=== PATIENT | female | born 1955 | race African-American/Black ===

== ENCOUNTER 2018-07-22 19:59 | Emergency (ER) | payer SELFPAY ==
--- NOTE | 2018-07-22 20:54 | ER Document Report ---
ED Medical Screen (RME) - General Chief Complaint: Foot Pain Stated Complaint: FEET PAIN Time Seen by Provider: 07/22/18 20:49 TRAVEL OUTSIDE OF THE [place] IN LAST 30 DAYS: No - HPI Notes: 07/22/18 20:52 Patient is a 63-year-old female who presents emergency department complaining of left pain to her first second and third toes that began about 6 days ago. Patient states that she thought she had an ingrown toenail in her great toe which is where the pain starts that she went had a pedicure done in outpatient has some redness and pain to the skin around the toenails of the first second and third digit. She has not noticed any abscess or purulent discharge. No injury. Denies SILVA, fever, neck pain, URI, CP, SOB, Abd pain. I have treated and performed a rapid initial assessment of this patient. A comprehensive ED assessment and evaluation of the patient, analysis of test results and completion of medical decision making process will be conducted by additional ED providers. PHYSICAL EXAMINATION: GENERAL: Well-appearing, well-nourished and in no acute distress. A&Ox4. Answers questions appropriately. LUNGS: Breath sounds clear to auscultation bilaterally and equal. No wheezes rales or rhonchi. HEART: Regular rate and rhythm without murmurs, rubs, gallops. Left toes: + bent shaped nails with mild erythema and tenderness associated to the nail border of the first 3 toes. No obvious abscess. No streaks or bony tenderness. N/V intact distal. - Related Data Allergies/Adverse Reactions: No Known Allergies Allergy (Unverified 12/30/13 11:04) Past Medical History - Past Medical History Cardiac Medical History: Reports: Hx Hypertension - treated by OTC remedies Renal/ Medical History: Reports: Hx Kidney Stones Past Surgical History: Reports: Hx Orthopedic Surgery - R GREAT TOE - Immunizations Hx Diphtheria, Pertussis, Tetanus Vaccination: No Physical Exam - Vital signs Vitals: Temp Pulse Resp BP Pulse Ox 98.0 F 93 17 168/106 H 99 07/22/18 20:02 07/22/18 20:02 07/22/18 20:02 07/22/18 20:02 07/22/18 20:02 Course - Vital Signs Vital signs: Temp Pulse Resp BP Pulse Ox 98.0 F 93 17 168/106 H 99 07/22/18 20:02 07/22/18 20:02 07/22/18 20:02 07/22/18 20:02 07/22/18 20:02
[2018-07-22] MEDS ORDERED: CEPHALEXIN 500 MG CAPSULE PO ONE (22:46)
--- NOTE | 2018-07-22 23:24 | ER Document Report ---
HPI - HPI Patient complains to provider of: Nail infection Time Seen by Provider: 07/22/18 20:49 Onset: Other - 3 weeks Onset/Duration: Worse Quality of pain: Achy Pain Level: 4 Context: Patient presents complaining of pain and swelling to the left first and second toes. Patient states she has had drainage from the left second toe. Patient reports getting a pedicure 2 weeks ago which helped her toenail discomfort although the pain started to worsen over the past week. Patient denies any fever. Patient denies any history of diabetes. Patient denies any trauma to the toes. Patient states she had similar problem involving the toes of the right foot and had to have her great toe nail removed. Associated Symptoms: Other - Left foot toe pain. denies: Fever Exacerbated by: Movement Relieved by: Denies Similar symptoms previously: Yes Recently seen / treated by doctor: No - ROS ROS below otherwise negative: Yes Systems Reviewed and Negative: Yes All other systems reviewed and negative - CONSTITUTIONAL Constitutional: DENIES: Fever - MUSCULOSKELETAL Musculoskeletal: REPORTS: Extremity pain, Swelling - DERM Skin Color: Normal Notes: Discoloration of the toes, drainage from the left toe Past Medical History - General Information source: Patient - Social History Smoking Status: Current Every Day Smoker Chew tobacco use (# tins/day): Yes Frequency of alcohol use: Social Drug Abuse: None Occupation: [employer] Lives with: Spouse/Significant other Family History: Reviewed & Not Pertinent Patient has suicidal ideation: No Patient has homicidal ideation: No - Past Medical History Cardiac Medical History: Reports: Hx Hypertension - treated by OTC remedies Endocrine Medical History: Denies: Hx Diabetes Mellitus Type 1, Hx Diabetes Mellitus Type 2 Renal/ Medical History: Reports: Hx Kidney Stones. Denies: Hx Peritoneal Dialysis Past Surgical History: Reports: Hx Orthopedic Surgery - R GREAT TOE - Immunizations Hx Diphtheria, Pertussis, Tetanus Vaccination: No Vertical Provider Document - CONSTITUTIONAL Agree With Documented VS: Yes Exam Limitations: No Limitations General Appearance: WD/WN, No Apparent Distress - INFECTION CONTROL TRAVEL OUTSIDE OF THE [place] IN LAST 30 DAYS: No - HEENT HEENT: Atraumatic, Normocephalic - NECK Neck: Normal Inspection - RESPIRATORY Respiratory: Breath Sounds Normal, No Respiratory Distress - CARDIOVASCULAR Cardiovascular: Regular Rate, Regular Rhythm Pulses: Normal: Dorsalis pedis - MUSCULOSKELETAL/EXTREMETIES Musculoskeletal/Extremeties: MAEW, FROM, Tender - Tenderness to left first and second toes with 1+ edema - NEURO Level of Consciousness: Awake, Alert, Appropriate Motor/Sensory: No Motor Deficit - DERM Integumentary: Warm, Dry. negative: Abscess Notes: No obvious ingrown nail, patient with tenderness to proximal nail plate of left great toe with mild erythema along lateral nail margin. Patient with tenderness and swelling to left second toe around the distal nail bed. Patient with mycotic appearance to toenails of left foot. Course - Re-evaluation Re-evalutation: 07/22/18 23:21 Patient with thickened toenails to the left foot. Patient reports drainage from the left second toe and has mild erythema surrounding the left great toe concerning for paronychia. No concern for felon at this time. Discussed with patient concerned about mildly elevated blood sugar at this time. Patient advised that she should have her primary doctor recheck this when she is fasting to rule out any concern about diabetes. Discussed with patient the need for follow-up with podiatry and likely toenail removal. Discussed treatment options with patient. Patient is agreeable with soaks, antibiotic treatment and outpatient follow-up with podiatry at this time. - Vital Signs Vital signs: Temp Pulse Resp BP Pulse Ox 98.0 F 93 17 168/106 H 99 07/22/18 20:02 07/22/18 20:02 07/22/18 20:02 07/22/18 20:02 07/22/18 20:02 - Laboratory Laboratory results interpreted by me: 07/23/18 02:16 Labs- Entire Visit 07/22/18 23:20 POC Glucose 163 H Discharge - Discharge Clinical Impression: Paronychia of toe of left foot Condition: Stable Disposition: HOME, SELF-CARE Instructions: Cephalexin ([facility]), Paronychia ([facility]) Additional Instructions: Return immediately for any new or worsening symptoms Followup with your primary care provider, call tomorrow to make a followup appointment Follow-up with podiatry for further management. Call tomorrow for an appointment Soak feet in warm soapy solution at least 3 times a day for 15 minutes. Prescriptions: Cephalexin Monohydrate [Keflex 500 mg Capsule] 500 mg PO Q6H 5 Days capsule Naproxen [Naprosyn 250 Nmg Tablet] 1 tab PO BID #14 tablet Forms: Smoking Cessation Education, Return to Work Referrals: KIA DELGADO DPM [ACTIVE STAFF] - Follow up as needed CARISSA ROBERT DPM [ACTIVE STAFF] - Follow up tomorrow
[2018-07-22 23:55] VITALS: BP 184/77
== END 2018-07-22 23:56 | disposition home or self-care (01) ==
LOC: ER 19:59
DX: L03.032 Cellulitis of left toe (principal); M79.675 Pain in left toe(s); R73.9 Hyperglycemia, unspecified; F17.200 Nicotine dependence, unspecified, uncomplicated; I10 Essential (primary) hypertension
CPT/HCPCS: 82962; 99283

== ENCOUNTER 2018-08-16 12:05 | Emergency (ER) | payer SELFPAY ==
[2018-08-16] MEDS ORDERED: OXYCODONE-ACETAMINOPHEN 5-325 MG TABLET PO ONE (14:28)
--- NOTE | 2018-08-16 14:28 | ER Document Report ---
ED Medical Screen (RME) - General Chief Complaint: Foot Pain Stated Complaint: FOOT PAIN Time Seen by Provider: 08/16/18 14:11 TRAVEL OUTSIDE OF THE [place] IN LAST 30 DAYS: No - Related Data Allergies/Adverse Reactions: No Known Allergies Allergy (Verified 08/16/18 12:07) Past Medical History - Social History Chew tobacco use (# tins/day): No Frequency of alcohol use: Social Drug Abuse: None - Past Medical History Cardiac Medical History: Reports: Hx Hypertension - treated by OTC remedies Endocrine Medical History: Denies: Hx Diabetes Mellitus Type 1, Hx Diabetes Mellitus Type 2 Renal/ Medical History: Reports: Hx Kidney Stones. Denies: Hx Peritoneal Dialysis Past Surgical History: Reports: Hx Orthopedic Surgery - R GREAT TOE - Immunizations Hx Diphtheria, Pertussis, Tetanus Vaccination: No Physical Exam - Vital signs Vitals: Temp Pulse Resp BP Pulse Ox 99.1 F 103 H 18 177/85 H 94 08/16/18 12:16 08/16/18 12:16 08/16/18 12:16 08/16/18 12:16 08/16/18 12:16 - General General appearance: Appears well Notes: Tenderness to left great toe and second toe, mild swelling, mild discoloration to the left second toe. Course - Vital Signs Vital signs: Temp Pulse Resp BP Pulse Ox 99.1 F 103 H 18 177/85 H 94 08/16/18 12:16 08/16/18 12:16 08/16/18 12:16 08/16/18 12:16 08/16/18 12:16
--- NOTE | 2018-08-16 15:02 | RADIOLOGY REPORT (SQ) ---
EXAM DESCRIPTION: FOOT LEFT COMPLETE COMPLETED DATE/TIME: 08/16/2018 2:52 pm REASON FOR STUDY: 1, 2 toe pain COMPARISON: None. NUMBER OF VIEWS: Three views. TECHNIQUE: AP, lateral and oblique radiographic images acquired of the left foot. LIMITATIONS: None. FINDINGS: MINERALIZATION: Normal. BONES: No acute fracture or dislocation. No worrisome bone lesions. Calcaneal enthesopathy is prese nt. JOINTS: No effusions. SOFT TISSUES: No soft tissue swelling. No foreign body. OTHER: No other significant finding. IMPRESSION: No evidence of acute osseous injury. TECHNICAL DOCUMENTATION: JOB ID: [id number] [employer]- All Rights Reserved Reading location - IP/workstation name: [email or web address]
--- NOTE | 2018-08-16 15:58 | ER Document Report ---
ED Extremity Problem, Lower - General Chief Complaint: Foot Pain Stated Complaint: FOOT PAIN Time Seen by Provider: 08/16/18 14:11 Mode of Arrival: Ambulatory Information source: Patient, [facility] Records Notes: Patient is a 63-year-old female comes emergency room complaining of left great toe and second toe pain. Patient states she was here approximately 3 to 4 weeks ago was diagnosed with a ingrown toenail/infection was placed on pain medication and antibiotics given referral to Dr. Yarbrough a student services representative locally. Patient was not able to get in right away her appointment was this morning she went to Dr. Chavez's office and when she looked at it she informed her she needed to come to emergency room because she is having a problem with her blood flow. TRAVEL OUTSIDE OF THE [place] IN LAST 30 DAYS: No - HPI Patient complains to provider of: Altered sensation Location: Foot, Great Toe, 2nd Toe Occurred: Other - 3 weeks Where: Home Onset/Duration: Gradual, Constant Quality of pain: Sharp, Throbbing Severity: Severe Pain Level: 4 Recent injury: No Exacerbated by: Walking Relieved by: Nothing - Related Data Allergies/Adverse Reactions: No Known Allergies Allergy (Verified 08/16/18 12:07) Past Medical History - General Information source: Patient - Social History Smoking Status: Current Every Day Smoker Cigarette use (# per day): Yes - Half-pack a day Chew tobacco use (# tins/day): No Smoking Education Provided: Yes Frequency of alcohol use: Social Drug Abuse: None Family History: Reviewed & Not Pertinent Patient has suicidal ideation: No Patient has homicidal ideation: No - Past Medical History Cardiac Medical History: Reports: Hx Hypertension - treated by OTC remedies Endocrine Medical History: Denies: Hx Diabetes Mellitus Type 1, Hx Diabetes Mellitus Type 2 Renal/ Medical History: Reports: Hx Kidney Stones. Denies: Hx Peritoneal Dialysis Past Surgical History: Reports: Hx Orthopedic Surgery - R GREAT TOE - Immunizations Hx Diphtheria, Pertussis, Tetanus Vaccination: No Review of Systems - Review of Systems Constitutional: No symptoms reported EENT: No symptoms reported Cardiovascular: No symptoms reported Respiratory: No symptoms reported Gastrointestinal: No symptoms reported Genitourinary: No symptoms reported Female Genitourinary: No symptoms reported Musculoskeletal: See HPI, Joint pain, Joint swelling Skin: No symptoms reported Hematologic/Lymphatic: No symptoms reported Neurological/Psychological: No symptoms reported -: Yes All other systems reviewed and negative Physical Exam - Vital signs Vitals: Temp Pulse Resp BP Pulse Ox 99.1 F 103 H 18 177/85 H 94 08/16/18 12:16 08/16/18 12:16 08/16/18 12:16 08/16/18 12:16 08/16/18 12:16 Interpretation: Hypertensive, Tachycardic - Notes Notes: PHYSICAL EXAMINATION: GENERAL: well-nourished and in no acute distress. Uncomfortable appearing HEAD: Atraumatic, normocephalic. EYES: Pupils equal round and reactive to light, extraocular movements intact, conjunctiva are normal. ENT: Nares patent, oropharynx clear without exudates. Moist mucous membranes. NECK: Normal range of motion, supple without lymphadenopathy LUNGS: Breath sounds clear to auscultation bilaterally and equal. No wheezes rales or rhonchi. HEART: Tachycardic rate and rhythm without murmurs Female : deferred Musculoskeletal: Examination patient's area of concern is her left lower foot. Primarily the great toe and second toe with second toe being the worst. Examination shows a very darkened almost cyanotic kind of presentation on examination. Palpation of the area shows the toes on the left foot to be moderately cooler than the toes on the right patient has flexion and extension but with pain noted. Patient's nails appear to be blackened and "shriveled". No sign of a infection is noted at this time. No cap refill is noted in the first and second third digits of the left lower extremity and cap refill in the fourth and fifth is marked decreased noted patient has a very depleted pulse on left foot. NEUROLOGICAL: Normal speech, normal gait. Normal sensory, motor exams PSYCH: Normal mood, normal affect. SKIN: See musculoskeletal above for full description of area of concern Course - Re-evaluation Re-evalutation: 08/16/18 21:20 I am putting in an entry here that I will precede with previous history througho ut the day. However I am getting this note in here because patient is being picked up by [facility] air ambulance service and transporting her to the facility. Reevaluation the patient time before transfer shows her to be awake alert and oriented x4. She was re-asked again that this is her choice to go by air ambulance and she agreed once again that this was her preferable weight of travel. She also agrees that [facility] is her hospital of choice. Patient's vital signs are stable and she is with a capable of being transferred safely from our facility to [facility] without incident. - Vital Signs Vital signs: Temp Pulse Resp BP Pulse Ox 98.6 F 63 16 159/88 H 100 08/16/18 20:49 08/16/18 20:49 08/16/18 20:49 08/16/18 20:49 08/16/18 20:49 - Laboratory Result Diagrams: 08/16/18 16:16 08/16/18 16:16 Laboratory results interpreted by me: 08/16/18 08/16/18 16:16 16:16 Hgb 15.8 H Hct 47.4 H RDW 14.9 H Glucose 156 H Discharge - Discharge Clinical Impression: Femoral artery occlusion, left, Femoral artery occlusion, right, Gangrene of toe of right foot Condition: Stable Disposition: [facility]
[2018-08-16 16:26] LABS: ABSOLUTE BASOPHILS # (AUTO) 0.1 10^3/uL (0.0-0.2); ABSOLUTE EOSINOPHILS # (AUTO) 0.1 10^3/uL (0.0-0.6); ABSOLUTE MONOCYTES (AUTO) 0.7 10^3/uL (0.1-1.4); ABSOLUTE NEUT (AUTO) 5.6 10^3/uL (1.7-8.2); BASOPHILS % (AUTO) 0.8 % (0-2); EOSINOPHILS % (AUTO) 1.6 % (0-6); HEMATOCRIT 47.4 % (36.0-47.0); HEMOGLOBIN 15.8 g/dL (12.0-15.5); LYMPHOCYTES % (AUTO) 31.5 % (13-45); MEAN CORPUSCULAR HGB CONC 33.3 g/dL (32.0-36.0); MEAN CORPUSCULAR VOLUME 96 fl (80-97); MONOCYTES % (AUTO) 6.9 % (3-13); PLATELET COUNT 162 10^3/uL (150-450); RED BLOOD COUNT 4.93 10^6/uL (3.72-5.28); RED CELL DISTRIBUTION WIDTH 14.9 % (11.5-14.0); SEGMENTED NEUTROPHILS % (AUTO) 59.2 % (42-78); TOTAL CELLS COUNTED % (AUTO) 100 %; WHITE BLOOD COUNT 9.5 10^3/uL (4.0-10.5)
--- NOTE | 2018-08-16 16:28 | XCELERA REPORT ---
[address] [address] Lower Extremity Arterial Evaluation Name: HERO HAN Age: 63 yrs Gender: Female : 1955 Patient Status: Emergency Patient Location: ER Study Date: 08/16/2018 03:12 PM Procedure: A color flow and duplex scan of the lower extremity arteries was performed bilaterally with velocity and waveform anaylsis. Reason For Study: L foot 1,2 toe pain Ordering Physician: CAROL ANN BULL Performed By: Marly Carlin Measurements and Calculations Right Left MICROWAVE SUPERVISOR PSV 111.9 176.4 cm/sec Prox PFA PSV -195.3cm/sec Prox SFA PSV -52.0 cm/sec Dist SFA PSV -51.6 cm/sec Prox Pop A PSV 48.3 33.9 cm/sec Dist Pop A PSV -37.4 cm/sec Dist DAIJA PSV 55.9 12.0 cm/sec Prox SEAM RUBBING MACHINE OPERATOR PSV 26.9 16.3 cm/sec Dist Vesta A 11.2 cm/sec PSV Damian Pedis PSV 49.6 20.2 cm/sec Right Side Arterial Evaluation Normal velocity and triphasic waveforms noted in the Common Femoral artery . Monophasic with spectral broadening, normal velocity in the reconstituted Popliteal. Monophasic, low velocity, spectral broadening in the infrageniculate vessels . Ankle Brachial index not obtained. Left Side Arterial Evaluation Normal velocity and triphasic waveforms noted in the Common Femoral artery . Monophasic with spectral broadening, normal velocity in the reconstituted Popliteal. Monophasic,very low velocity, spectral broadening in the infrageniculate vessels . Trickle flow in the Anterior Tibial artery. Ankle Brachial index not obtained. Interpretation Summary Severe hemodynamically significant lesions in the bilateral lower extremities, on duplex imaging, at rest. Worse on left, multi level disease, occluded Femoral arteries, likely sequential disease in the infrageniculate arteries. : CAROL ANN BULL > Tejinder Sal
[2018-08-16 16:46] LABS: ALANINE AMINOTRANSFERASE 21 U/L (9-52); ALBUMIN 4.2 g/dL (3.5-5.0); ALKALINE PHOSPHATASE 68 U/L (38-126); ANION GAP 10 (5-19); ASPARTATE AMINO TRANSFERASE 20 U/L (14-36); BILIRUBIN,DIRECT 0.2 mg/dL (0.0-0.4); BILIRUBIN,TOTAL 0.4 mg/dL (0.2-1.3); BLOOD UREA NITROGEN 10 mg/dL (7-20); CALCIUM 9.9 mg/dL (8.4-10.2); CARBON DIOXIDE 28 mmol/L (22-30); CHLORIDE 103 mmol/L (98-107); GLUCOSE 156 mg/dL (75-110); POTASSIUM 4.4 mmol/L (3.6-5.0); TOTAL PROTEIN 7.1 g/dL (6.3-8.2)
[2018-08-16] MEDS ORDERED: VANCOMYCIN HCL INJ 1000 MG VIAL IV ONE (19:25)
[2018-08-16] MEDS ORDERED: MORPHINE SULFATE 10 MG/ML INJ IV ONE (19:25)
[2018-08-16 20:51] VITALS: BP 159/88
== END 2018-08-16 21:25 | disposition short-term general hospital (02) ==
LOC: ER 12:05
DX: I70.261 Atherosclerosis of native arteries of extremities with gangrene, right leg (principal); I70.202 Unspecified atherosclerosis of native arteries of extremities, left leg; F17.210 Nicotine dependence, cigarettes, uncomplicated; I10 Essential (primary) hypertension; R00.0 Tachycardia, unspecified
CPT/HCPCS: 36415; 85025; 80053; 93925 ×2; 73630; J2270; J3370

== ENCOUNTER → 2020-03-06 | Outpatient (CLI) | payer MEDICAID ==
--- NOTE | 2020-03-06 11:13 | WOMENS IMAGING REPORT ---
EXAM DESCRIPTION: BILAT SCREENING MAMMO W/CAD IMAGES COMPLETED DATE/TIME: 03/06/2020 8:09 am REASON FOR STUDY: Z12.31 ENCNTR SCREEN MAMMOGRAM FOR MALIGNANT NEOPLASM OF BREAST Z12.31 ENCNTR SCR EEN MAMMOGRAM FOR MALIGNANT NEOPLASM OF APRIL COMPARISON: None. EXAM PARAMETERS: Standard craniocaudal and mediolateral oblique views of each breast recorded using digital acquisition. Read with the assistance of CAD. .[facility] [place] [facility] ERUC[facility] [employer] Version 9.2 LIMITATIONS: None. FINDINGS: No suspicious masses, suspicious calcifications or architectural distortion. No areas of c oncern. IMPRESSION: NEGATIVE MAMMOGRAM. BIRADS 1 BREAST DENSITY: a. The breasts are almost entirely fatty. BIRAD: ASSESSMENT: 1 NEGATIVE RECOMMENDATION: ROUTINE SCREENING COMMENT: The patient has been notified of the results by letter per MQSA requirements. Additional no tification policies are in place for contacting patient with suspicious or incomplete findings. Quality ID #[id number]: The [employer] recommends an annual screening mammogram for women aged 40 years or over. This facility utilizes a reminder system to ensure that all patients receive reminder letters, and/or direct phone calls for appointments. This includes reminders for routine scr eening mammograms, diagnostic mammograms, or other Breast Imaging Interventions when appropriate. Th is patient will be placed in the appropriate reminder system. TECHNICAL DOCUMENTATION: FINDING NUMBER: (1) ASSESSMENT: (1) JOB ID: [id number] [employer]- All Rights Reserved Reading location - IP/workstation name: [email or web address]
== END ==
LOC: WI 07:39
PROVIDERS: ATTEND Internal Medicine
DX: Z12.31 Encounter for screening mammogram for malignant neoplasm of breast (principal)
CPT/HCPCS: 77067